=== PATIENT | female | born 1975 | race Caucasian/White ===

== ENCOUNTER 2018-01-02 21:42 | Inpatient (IN) | payer OTHER ==
[2018-01-02] MEDS ORDERED: fentaNYL 100 MCG/2 ML INJ ONE (21:49)
[2018-01-02] MEDS ORDERED: fentaNYL 100 MCG/2 ML INJ IVP ONE (21:53)
[2018-01-02] MEDS ORDERED: NS 1,000 ML IV ONE ×2 (21:54→22:11)
[2018-01-02] MEDS ORDERED: HYDROmorphONE/DILAUDID 1 MG/ML INJ IVP ONE ×2 (22:11→22:44)
[2018-01-02] MEDS ORDERED: ONDANSETRON 4 MG/2 ML VIAL IVP ONE ×2 (22:11→22:57)
[2018-01-02 22:18] LABS: PLATELET COUNT 329 10^3/uL (150-400)
--- NOTE | 2018-01-02 22:22 | EDPHY ---
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 Patient states she has these flares about every 6 months. She is in [facility] from [facility]. Some nausea no vomiting. She states she has had a cholecystectomy in the past and 15 ERCPs. She has also had a partial pancreatectomy. Her physicians have recommended a Whipple procedure but she has been putting this off. Her symptoms today are the same as her prior episodes. She states that usually IV fluids and Dilaudid are the only things at work for her. Patient states she normally takes Hyder 2 tablets for her chronic pain. ROS: 10 point Review of Systems is negative except as noted in the HPI. 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 Social History: No smoking, no alcohol, no recreational drug use Family History: non-contributory Physical Exam: Gen: Awake, Alert, uncomfortable appearing HEENT: Nose: no rhinorrhea Eyes: PERRLA, EOMI Mouth: Moist mucosa Neck: Supple, no JVD Chest: nontender, lungs clear to auscultation Heart: S1, S2 normal, no murmur Abd: Soft, moderate epigastric tenderness, no guarding Back: no CVA tenderness, no midline tenderness Ext: no edema, non-tender Skin: no rash Neuro: CN II-XII intact, Sensation grossly intact, Strength 5/5 in bilateral upper and lower extremities - Personal History LMP (Females 10-55): 8-14 Days Ago Current Tetanus Diphtheria and Acellular Pertussis (TDAP): Yes - Medical/Surgical History Hx Asthma: No Hx Chronic Respiratory Disease: No Hx Diabetes: No Hx Cardiac Disease: No Hx Renal Disease: No Hx Cirrhosis: No Hx Alcoholism: No Hx HIV/AIDS: No Hx Splenectomy or Spleen Trauma: No Other PMH: pancreatitis since age 19 - Social History Smoking Status: Never smoked Constitutional: Initial Vital Signs Temperature (C) 36.7 C 01/02/18 21:43 Heart Rate 109 H 01/02/18 21:43 Respiratory Rate 20 01/02/18 21:43 Blood Pressure 126/102 H 01/02/18 21:43 O2 Sat (%) 96 01/02/18 21:43 O2 Delivery Mode Room Air Allergies/Adverse Reactions: ciprofloxacin [From Cipro] Allergy (Verified 01/02/18 21:43) Medical Decision Making ED Course/Re-evaluation: 42-year-old with chronic pancreatitis presenting with acute flare. Her lipase [place] 12,000[place] [address]. Patient received 2 mg of Dilaudid, 50 mcg of fentanyl, 8 mg of Zofran and 2 L of fluid. She is still complaining of pain. I discussed with Dr. Rodriguez, hospitalist. She will admit to her service for further care. - Data Points Laboratory Results: Laboratory Results 01/02/18 21:51 01/02/18 21:51 01/02/18 01/02/18 21:51 21:51 WBC 21.80 10^3/uL H 10^3/uL (3.80-9.50) RBC 4.74 10^6/uL 10^6/uL (4.18-5.33) Hgb 14.0 g/dL g/dL (12.6-16.3) Hct 41.7 % % (38.0-47.0) MCV 88.0 fL fL (81.5-99.8) MCH 29.5 pg pg (27.9-34.1) MCHC 33.6 g/dL g/dL (32.4-36.7) RDW 13.8 % % (11.5-15.2) Plt Count 329 10^3/uL 10^3/uL (150-400) MPV 10.1 fL fL (8.7-11.7) Neut % (Auto) 85.3 % H % (39.3-74.2) Lymph % (Auto) 9.5 % L % (15.0-45.0) [place] % (Auto) 4.3 % L % (4.5-13.0) Eos % (Auto) 0.4 % L % (0.6-7.6) Baso % (Auto) 0.2 % L % (0.3-1.7) Nucleat RBC Rel Count 0.0 % % (0.0-0.2) Absolute Neuts (auto) 18.60 10^3/uL H 10^3/uL (1.70-6.50) Absolute Lymphs (auto) 2.07 10^3/uL 10^3/uL (1.00-3.00) Absolute Monos (auto) 0.93 10^3/uL H 10^3/uL (0.30-0.80) Absolute Eos (auto) 0.08 10^3/uL 10^3/uL (0.03-0.40) Absolute Basos (auto) 0.05 10^3/uL 10^3/uL (0.02-0.10) Absolute Nucleated RBC 0.00 10^3/uL 10^3/uL (0-0.01) Immature Gran % 0.3 % % (0.0-1.1) Immature Gran # 0.07 10^3/uL 10^3/uL (0.00-0.10) Sodium 142 mEq/L mEq/L (135-145) Potassium 3.7 mEq/L mEq/L (3.3-5.0) Chloride 106 mEq/L mEq/L (97-110) Carbon Dioxide 22 mEq/l mEq/l (22-31) Anion Gap 14 mEq/L mEq/L (8-16) BUN 19 mg/dL mg/dL (7-23) Creatinine 0.6 mg/dL mg/dL (0.6-1.0) Estimated GFR > 60 Glucose 102 mg/dL H mg/dL (70-100) Calcium 9.8 mg/dL mg/dL (8.5-10.4) Total Bilirubin 0.4 mg/dL mg/dL (0.1-1.4) AST 26 IU/L IU/L (14-46) ALT 39 IU/L IU/L (9-52) Alkaline Phosphatase 89 IU/L IU/L (38-126) Total Protein 7.8 g/dL g/dL (6.3-8.2) Albumin 4.5 g/dL g/dL (3.5-5.0) Lipase 60280 IU/L H IU/L (23-300) Medications Given: Discontinued Medications Fentanyl (Sublimaze) 50 mcg IVP EDNOW ONE Stop: 01/02/18 21:54 Last Admin: 01/02/18 21:54 Dose: 50 mcg Hydromorphone HCl (Dilaudid) 1 mg IVP EDNOW ONE Stop: 01/02/18 22:12 Last Admin: 01/02/18 22:18 Dose: 1 mg Hydromorphone HCl (Dilaudid) 1 mg IVP EDNOW ONE Stop: 01/02/18 22:45 Last Admin: 01/02/18 22:51 Dose: 1 mg Hydromorphone HCl (Dilaudid) 1 mg IVP EDNOW ONE Stop: 01/02/18 23:53 Last Admin: 01/02/18 23:54 Dose: 1 mg Sodium Chloride (Ns) 1,000 mls @ 0 mls/hr IV ONCE ONE PRN Reason: Wide Open Stop: 01/02/18 21:55 Last Admin: 01/02/18 21:55 Dose: 1,000 mls Sodium Chloride (Ns) 1,000 mls @ 0 mls/hr IV ONCE ONE; Wide Open PRN Reason: Protocol Stop: 01/02/18 22:12 Last Admin: 01/02/18 22:18 Dose: 1,000 mls Ondansetron HCl (Zofran) 4 mg IVP EDNOW ONE Stop: 01/02/18 22:12 Last Admin: 01/02/18 22:18 Dose: 4 mg Ondansetron HCl (Zofran) 4 mg IVP EDNOW ONE Stop: 01/02/18 22:58 Last Admin: 01/02/18 23:00 Dose: 4 mg Departure - Departure Disposition: [facility] Inpatient Acute Clinical Impression: Acute pancreatitis Condition: Fair Referrals: NONE *PRIMARY CARE P,. [Primary Care Provider] - As per Instructions
[2018-01-02] MEDS ORDERED: HYDROmorphONE/DILAUDID 1 MG/ML INJ ONE (22:45)
[2018-01-02] MEDS ORDERED: ONDANSETRON 4 MG/2 ML VIAL ONE (22:57)
[2018-01-02] MEDS ORDERED: HYDROmorphONE/DILAUDID 2 MG/ML INJ IVP ONE (23:52)
[2018-01-03] MEDS ORDERED: ACETAMINOPHEN 325 MG TAB PO PRN (00:04)
[2018-01-03] MEDS ORDERED: PROMETHAZINE HCL 25 MG/ML INJ IVP PRN (00:04)
--- NOTE | 2018-01-03 01:22 | PDGENHP ---
History and Physical - Chief Complaint Epigastric pain - History of Present Illness Source-patient provides history and appears reliable. EMR reviewed and case discussed with ED provider. HPI-this is a pleasant 42-year-old female with past medical history significant for recurrent pancreatitis related to pancreatic duct atresia who presents to the emergency department today with complaints of sudden onset of epigastric pain. Patient reports that she ate a bowl of a broccoli cheese soup this afternoon. Shortly thereafter patient developed epigastric pain. She attempted to take her Zofran and [place] which she has for recurrent pancreatitis but her symptoms continued to worsen and so she presented to the emergency department for further evaluation. Patient has had several episodes of nausea vomiting. She denies any hematemesis but notes some bilious emesis. Denies any diarrhea. No significant abdominal distention or bloating but does report that her abdomen does have tight when she takes a deep breath. Patient reports pain to be sharp and aching. It is mostly constant with intermittent exacerbations of a sharp pain. Patient denies any fevers or chills. She has had a history of a cholecystectomy, numerous ERCPs up to 15 and a partial pancreatectomy with recommendations for Whipple. History Information - Allergies/Home Medication List Allergies/Adverse Reactions: ciprofloxacin [From Cipro] Allergy (Verified 01/02/18 21:43) I have personally reviewed and updated: family history, medical history, social history, surgical history - Past Medical History Additional medical history: Pancreatic duct atresia with recurrent pancreatitis since the age of 19. Chronic abdominal pain. - Surgical History Additional surgical history: Cholecystectomy, ERCP times 15, partial pancreatectomy - Family History Additional family history: Patient denies any family history of GI issues or pancreatitis. Rheumatoid arthritis does run in the family. - Social History Smoking Status: Never smoked Alcohol Use: None Drug Use: None Additional social history: Patient is visiting from [place] for a softball tournament. Cor status-full. Review of Systems Review of Systems: ROS: 10pt was reviewed & negative except for what was stated in HPI & below Constitutional: Reports: no symptoms EENMT: Reports: no symptoms Cardiac: Reports: no symptoms Respiratory: Reports: no symptoms Gastrointestinal: Reports: vomitting, abdominal pain (See HPI), nausea. Denies : black stools, rectal bleeding, abdominal distention, diarrhea Genitourinary: Reports: no symptoms Muscolosketal: Reports: no symptoms Skin: Reports: no symptoms Neurological: Reports: no symptoms Hematologic/Lymphatic: Reports: no symptoms Physical Exam Physical Exam: Selected Entries 01/02/18 21:43 Blood Pressure Automatic Method Heart Rate 109 H Respiratory 20 Rate O2 Sat (%) 96 Temperature (C) 36.7 C Blood Pressure 126/102 H Mean Arterial 110 H Pressure (MAP) O2 Delivery Room Air Mode Temperature Oral Source Temp Pulse Resp BP Pulse Ox 37.0 C 102 H 16 125/71 H 93 01/03/18 00:47 01/03/18 00:47 01/03/18 00:47 01/03/18 00:47 01/03/18 00:47 Constitutional: obese, uncomfortable, other (Patient in mild distress lying in bed. She laser quietly and still crit lying or abdomen. She could is tearful and moans intermittently.) Eyes: PERRL, anicteric sclera, EOMI, No scleral injection Ears, Nose, Mouth, Throat: no oral mucosal ulcers, dry mucous membranes, other ( No nasal discharge), No poor dentition Cardiovascular: regular rate and rhythym, no murmur, rub, or gallop, pulses symmetric bilaterally, No edema Peripheral Pulses: 2+: dorsalis-pedis (R), dorsalis-pedis (L) Respiratory: no respiratory distress, no rales or rhonchi, clear to auscultation , reduced air movement (Decreased inspiratory effort secondary to abdominal pain.) Gastrointestinal: tenderness (Upper abdominal tenderness primarily in the epigastric region. Limited exam secondary to pain.), other (Obese abdomen. Hypoactive bowel sounds diffusely.), No guarding, No rebound, No distension Genitourinary: no bladder tenderness, No thomas in urethra Skin: warm, normal color, no rashes or abrasions Musculoskeletal: other (Patient able to move all extremities again she lays quite still cradle in her abdomen. She does appear uncomfortable due to abdominal pain when she is moving her arms.) Neurologic: AAOx3, sensation intact bilaterally, other (Grossly nonfocal exam.) , No facial droop Psychiatric: interacting appropriately, not encephalopathic, thought process linear, other (Patient appears uncomfortable but she still pleasant and cooperative.) Lab Data & Imaging Review 01/02/18 21:51 01/02/18 21:51 WBC 21.80 10^3/uL (3.80-9.50) H 01/02/18 21:51 RBC 4.74 10^6/uL (4.18-5.33) 01/02/18 21:51 Hgb 14.0 g/dL (12.6-16.3) 01/02/18 21:51 Hct 41.7 % (38.0-47.0) 01/02/18 21:51 MCV 88.0 fL (81.5-99.8) 01/02/18 21:51 MCH 29.5 pg (27.9-34.1) 01/02/18 21:51 MCHC 33.6 g/dL (32.4-36.7) 01/02/18 21:51 RDW 13.8 % (11.5-15.2) 01/02/18 21:51 Plt Count 329 10^3/uL (150-400) 01/02/18 21:51 MPV 10.1 fL (8.7-11.7) 01/02/18 21:51 Neut % (Auto) 85.3 % (39.3-74.2) H 01/02/18 21:51 Lymph % (Auto) 9.5 % (15.0-45.0) L 01/02/18 21:51 [place] % (Auto) 4.3 % (4.5-13.0) L 01/02/18 21:51 Eos % (Auto) 0.4 % (0.6-7.6) L 01/02/18 21:51 Baso % (Auto) 0.2 % (0.3-1.7) L 01/02/18 21:51 Nucleat RBC Rel Count 0.0 % (0.0-0.2) 01/02/18 21:51 Absolute Neuts (auto) 18.60 10^3/uL (1.70-6.50) H 01/02/18 21:51 Absolute Lymphs (auto) 2.07 10^3/uL (1.00-3.00) 01/02/18 21:51 Absolute Monos (auto) 0.93 10^3/uL (0.30-0.80) H 01/02/18 21:51 Absolute Eos (auto) 0.08 10^3/uL (0.03-0.40) 01/02/18 21:51 Absolute Basos (auto) 0.05 10^3/uL (0.02-0.10) 01/02/18 21:51 Absolute Nucleated RBC 0.00 10^3/uL (0-0.01) 01/02/18 21:51 Immature Gran % 0.3 % (0.0-1.1) 01/02/18 21:51 Immature Gran # 0.07 10^3/uL (0.00-0.10) 01/02/18 21:51 Sodium 142 mEq/L (135-145) 01/02/18 21:51 Potassium 3.7 mEq/L (3.3-5.0) 01/02/18 21:51 Chloride 106 mEq/L (97-110) 01/02/18 21:51 Carbon Dioxide 22 mEq/l (22-31) 01/02/18 21:51 Anion Gap 14 mEq/L (8-16) 01/02/18 21:51 BUN 19 mg/dL (7-23) 01/02/18 21:51 Creatinine 0.6 mg/dL (0.6-1.0) 01/02/18 21:51 Estimated GFR > 60 01/02/18 21:51 Glucose 102 mg/dL (70-100) H 01/02/18 21:51 Calcium 9.8 mg/dL (8.5-10.4) 01/02/18 21:51 Total Bilirubin 0.4 mg/dL (0.1-1.4) 01/02/18 21:51 AST 26 IU/L (14-46) 01/02/18 21:51 ALT 39 IU/L (9-52) 01/02/18 21:51 Alkaline Phosphatase 89 IU/L (38-126) 01/02/18 21:51 Total Protein 7.8 g/dL (6.3-8.2) 01/02/18 21:51 Albumin 4.5 g/dL (3.5-5.0) 01/02/18 21:51 Lipase 95430 IU/L (23-300) H 01/02/18 21:51 Assessment & Plan Assessment: Pleasant 42-year-old female with history of pancreatic duct atresia presents with acute onset epigastric pain and nausea/vomiting. Acute pancreatitis (Acute) - with reported history of pancreatic duct atresia. Patient's LFTs are within normal limits. She is status post history of cholecystectomy. Continue treatment with the bowel rest and NPO status. IV fluid hydration. Will monitor lipase and symptoms. Intractable abdominal pain - patient to with history of good response to Dilaudid. Her pain is improved but she is still significantly uncomfortable. A trial of lorazepam to see if this will assist with any pain/spasm control. Patient is on a pulse ox. Leukocytosis - reactive in setting of acute pancreatitis. Continue to monitor CBC. Patient is afebrile. This is not suspect necrosis or pseudocyst at this time. Hold off on imaging. Nausea - Zofran and Phenergan will be available p.r.n.. FEN - NS at 1:50 mls/hr. NPO status. Electrolyte monitoring and replacement if needed. PPX-SCDs. Lovenox. Cor status-full. Disposition-patient admitted to inpatient status on the medical floor. Given the severity of her pancreatitis in her symptoms anticipate that she will require greater than 2 midnight hospital stay for management and IV pain control.
[2018-01-03] MEDS: LORazepam 2 MG/ML INJ IVP PRN ×3 (01:24→22:21)
[2018-01-03] MEDS: HYDROmorphONE/DILAUDID 1 MG/ML INJ IVP PRN ×5 (04:34→22:21)
[2018-01-03 05:26] LABS: PLATELET COUNT 272 10^3/uL (150-400)
[2018-01-03] MEDS: ONDANSETRON 4 MG/2 ML VIAL IVP PRN ×3 (08:39→19:24)
[2018-01-03] MEDS: ENOXAPARIN 40 MG/0.4 ML SYR SC SCH (08:46)
--- NOTE | 2018-01-03 11:35 | HOSPPROG ---
Hospitalist Progress Note Assessment/Plan: Pleasant 42-year-old female with history of pancreatic duct atresia presents with acute onset epigastric pain and nausea/vomiting. Acute pancreatitis (Acute) - with reported history of pancreatic duct atresia. Patient's LFTs are within normal limits. She is status post history of cholecystectomy. Continue treatment with the bowel rest and NPO status. IV fluid hydration. Will monitor lipase and symptoms. Lipase better. Symptoms the same. Intractable abdominal pain - patient to with history of good response to Dilaudid. Her pain is improved but she is still significantly uncomfortable. A trial of lorazepam to see if this will assist with any pain/spasm control. Patient is on a pulse ox. Leukocytosis - reactive in setting of acute pancreatitis. Continue to monitor CBC. Patient is afebrile. This is not suspect necrosis or pseudocyst at this time. Hold off on imaging. Nausea - Zofran and Phenergan will be available p.r.n.. FEN - NS at 1:50 mls/hr. NPO status. Electrolyte monitoring and replacement if needed. PPX-SCDs. Lovenox. Cor status-full. Disposition-patient admitted to inpatient status on the medical floor. Given the severity of her pancreatitis in her symptoms anticipate that she will require greater than 2 midnight hospital stay for management and IV pain control. Subjective: Still having abd pain. Objective: Vital Signs Temp Pulse Resp BP Pulse Ox 36.9 C 88 16 121/71 H 96 01/03/18 07:56 01/03/18 07:56 01/03/18 07:56 01/03/18 07:56 01/03/18 07:56 Laboratory Results 01/03/18 05:05 01/03/18 05:05 01/02/18 01/03/18 01/04/18 05:59 05:59 05:59 Intake Total 1999 Balance 1999 - Physical Exam Constitutional: appears nourished, uncomfortable Eyes: PERRL, anicteric sclera Ears, Nose, Mouth, Throat: moist mucous membranes, hearing normal Cardiovascular: No JVD, No edema Respiratory: no respiratory distress, no rales or rhonchi Gastrointestinal: tenderness, No ascites Skin: warm, normal color Musculoskeletal: no joint effusions, generalized weakness Neurologic: AAOx3 Psychiatric: not anxious, not encephalopathic ICD10 Worksheet Patient Problems: Problems Problem Status Onset Acute pancreatitis Acute
--- NOTE | 2018-01-03 12:40 | ASMTCMCOM ---
CM Note CM Note Notes: Spoke w/[facility]OT DOCTOR, anticipate pt will dc home w/support of when medically stable, CM available for any changes. DC Plan: independent Date Signed: 01/03/2018 12:39 PM Electronically Signed By:Elma Tadeo RN
--- NOTE | 2018-01-03 14:27 | PDMN ---
Medical Necessity Medical necessity: Pt meets IP criteria per MD & MCG M-250; est los >2 mn for eval/tx of acute pancreatitis [place] [address]; requiring NPO status, IVFs (150 mls/hr) & IV pain meds; hx pancreatic duct atresia
[2018-01-03] MEDS: NS 1,000 ML IV SCH (19:30)
[2018-01-04] MEDS: HYDROmorphONE/DILAUDID 1 MG/ML INJ IVP PRN ×4 (07:02→22:04)
[2018-01-04] MEDS: ENOXAPARIN 40 MG/0.4 ML SYR SC SCH (10:01)
[2018-01-04] MEDS: ONDANSETRON 4 MG/2 ML VIAL IVP PRN ×2 (11:52→22:04)
[2018-01-04] MEDS: NS 1,000 ML IV SCH ×2 (11:57→19:23)
--- NOTE | 2018-01-04 14:02 | HOSPPROG ---
Hospitalist Progress Note Assessment/Plan: Selin 42-year-old female with history of pancreatic duct atresia presents with acute onset epigastric pain and nausea/vomiting. Acute pancreatitis (Acute) - with reported history of pancreatic duct atresia. - Patient's LFTs are within normal limits. -She is status post history of cholecystectomy. -Continue treatment with the bowel rest and NPO status. -IV fluid hydration. -lipase better today. -Symptoms better Intractable abdominal pain -better today - patient to with history of good response to Dilaudid. -Her pain is improved but she is still significantly uncomfortable. -advance to clear liquids Leukocytosis - reactive in setting of acute pancreatitis. -improved - Patient is afebrile. This is not suspect necrosis or pseudocyst at this time. Hold off on imaging. Nausea - Zofran and Phenergan will be available p.r.n.. FEN - clear liquid NS at 1:50 mls/hr. Electrolyte monitoring and replacement if needed. PPX-SCDs. Lovenox. Cor status-full. Disposition-patient admitted to inpatient status on the medical floor. Given the severity of her pancreatitis in her symptoms anticipate that she will require greater than 2 midnight hospital stay for management and IV pain control. Subjective: Still feeling weak. Abd pain better today but still present. Objective: Vital Signs Temp Pulse Resp BP Pulse Ox 37.0 C 82 16 118/74 92 01/04/18 11:40 01/04/18 11:40 01/04/18 11:40 01/04/18 11:40 01/04/18 11:40 Laboratory Results 01/04/18 04:31 01/04/18 04:31 01/03/18 01/04/18 01/05/18 05:59 05:59 05:59 Intake Total 2000 Output Total 1800 Balance 1999 -1799 - Physical Exam Constitutional: appears nourished, uncomfortable Eyes: PERRL, anicteric sclera, EOMI Ears, Nose, Mouth, Throat: moist mucous membranes, hearing normal, ears appear normal Cardiovascular: No JVD, No edema Respiratory: no respiratory distress, reduced air movement Gastrointestinal: tenderness, guarding, No ascites Skin: warm, normal color Musculoskeletal: no joint effusions, generalized weakness Neurologic: AAOx3 Psychiatric: interacting appropriately, not anxious, not encephalopathic, thought process linear ICD10 Worksheet Patient Problems: Problems Problem Status Onset Acute pancreatitis Acute
[2018-01-04] MEDS: LORazepam 2 MG/ML INJ IVP PRN (15:12)
[2018-01-05] MEDS: HYDROmorphONE/DILAUDID 1 MG/ML INJ IVP PRN (03:07)
[2018-01-05] MEDS: NS 1,000 ML IV SCH (08:35)
[2018-01-05] MEDS: ENOXAPARIN 40 MG/0.4 ML SYR SC SCH (10:39)
[2018-01-05 12:12] VITALS: BP 120/76
[2018-01-05] MEDS ORDERED: HYDROCODONE/APAP 5/325 TAB PO PRN (14:25)
[2018-01-05] MEDS ORDERED: ONDANSETRON DISINTEGRATING 4 MG TAB PO PRN (14:25)
[2018-01-05] MEDS ORDERED: LIPASE 12,000/AMYLASE/PROTEASE (CREON) 1 CAP PO SCH (18:00)
--- NOTE | 2018-01-05 19:33 | GDS ---
[f rep st] DISCHARGE SUMMARY DISCHARGE DIAGNOSES: 1. Acute pancreatitis. 2. Pancreatic atresia with recurrent pancreatitis. 3. Chronic pancreatitis status post partial pancreatectomy. HISTORY: The patient is a 42-year-old female visiting in town from [place] for a softball tournam ent when she developed her usual pain consistent with acute pancreatitis. She has a history of recur rent pancreatitis due to pancreatic duct atresia since age 19 status post cholecystectomy, status pos t ERCP x15, status post partial pancreatectomy, and has been recommended for complete pancreatectomy and a Whipple. She was admitted to the hospital and had an elevated lipase of 12,000. She was treat ed with bowel rest. She slowly improved. She is currently tolerating clear liquids. She has a flig ht home tomorrow. She is tolerating liquids without any difficulty and typically will stay on a liqu id diet for a few days even post hospital discharge. She desires to do this in order to get home and have close followup with her doctor in [place] already scheduled. She typically uses oral Dilaud id to get through severe acute pancreatitis attacks, but did not bring it with her from [place] an d requires just a couple days to get her home until she can follow up with her usual physicians. DISCHARGE MEDICATIONS: Please see computerized record for full detailed list. New medications: Dil audid 2 mg every 6 hours as needed 10 tablets dispensed. ADDITIONAL DISCHARGE INSTRUCTIONS: 1. Continue clear liquids. Advance diet slowly under the direction of physicians in [place]. 2. The patient is cleared to fly home tomorrow. Greater than 30 minutes' time was spent arranging this discharge. Patient was seen and examined by bridget yun on the day of discharge. /[id number]/MODL
== END 2018-01-05 15:50 | disposition home or self-care (01) | DRG 440 ==
LOC: F3E 01-03 00:41
PROVIDERS: ADMIT Family Medicine; ATTEND Internal Medicine
DX: K86.1 Other chronic pancreatitis (principal); R10.13 Epigastric pain; Z90.411 Acquired partial absence of pancreas
CPT/HCPCS: 96374; J1170; J1650; J2060; J2405; J3010